=== PATIENT | female | born 1960 | race Caucasian/White ===

== ENCOUNTER 2024-08-16 11:14 | Inpatient (IN) | payer OTHER ==
[~2024-08-16] VITALS: Ht 175.3 cm; Wt 106.7 kg
[2024-08-16 11:22] VITALS: BP_SYST 165; PULSE 162; RESP 24; TEMP 98.2; O2SAT 96
[2024-08-16 12:27] LABS: BASOPHILS # (AUTO) 0.1 K/uL (0.0-0.2); BASOPHILS % (AUTO) 0.6 % (0.0-2.0); EOSINOPHILS % (AUTO) 0.3 % (0.0-4.0); HEMATOCRIT 38.6 % (36-48); HEMOGLOBIN 12.3 g/dL (12.0-16.0); LYMPHOCYTES # (AUTO) 1.3 K/uL (1.0-5.5); LYMPHOCYTES % (AUTO) 11.7 % (20.5-51.5); MEAN CORPUSCULAR HEMOGLOBIN 26 pg (27-31); MEAN CORPUSCULAR HGB CONC 32 % (32-36); MEAN CORPUSCULAR VOLUME 81 fL (79.0-98.0); MONOCYTES # (AUTO) 0.8 K/uL (0.0-1.0); MONOCYTES % (AUTO) 6.9 % (1.7-9.3); NEUTROPHILS # (AUTO) 8.8 K/uL (1.8-7.7); NEUTROPHILS % (AUTO) 80.5 % (40.0-70.0); PLATELET COUNT (AUTO) 268 K/uL (130-430); RED BLOOD CELL COUNT(AUTO) 4.76 MIL/uL (4.2-6.2); RED CELL DISTRIBUTION WIDTH 16.7 % (9.0-15.0)
[2024-08-16] MEDS: dilTIAZem HCL IVP 5 MG/ML VIAL IVP ONE (12:35)
[2024-08-16] MEDS: DILTIAZEM HCL 60 MG TABLET PO ONE (12:36)
[2024-08-16 12:38] LABS: INR 1.1 (0.8-1.2); PROTHROMBIN TIME 11.9 SECS (9.5-12.5)
[2024-08-16 12:51] LABS: ALANINE AMINOTRANSFERASE 39 U/L (12-78); ALBUMIN 3.8 g/dL (3.4-4.8); ANION GAP 12 (5-15); ASPARTATE AMINOTRANSFERASE 24 U/L (10-37); BILIRUBIN,DIRECT 0.3 mg/dL (0.0-0.3); CALCIUM 9.3 mg/dL (8.4-11.0); CARBON DIOXIDE 19 mmol/L (23-29); CHLORIDE 107 mmol/L (98-107); CREATINE KINASE, TOTAL 42 U/L (26-192); CREATININE 1.12 mg/dL (0.55-1.30); GFR AFRICAN AMERICAN 63 mL/min (>90); GLUCOSE 134 mg/dL (74-106); POTASSIUM 3.7 mmol/L (3.5-5.1); SODIUM SERUM 138 mmol/L (136-145); TOTAL BILIRUBIN 0.9 mg/dL (0.0-1.0); TOTAL PROTEIN, SERUM 7.3 g/dL (6.4-8.3); UREA NITROGEN, BLOOD 21 mg/dL (8-21)
[2024-08-16 12:53] LABS: GFR NON AFRICAN-AMERICAN 52 mL/min (>90)
[2024-08-16] MEDS ORDERED: ACETAMINOPHEN 325 MG TABLET PO PRN (14:00)
[2024-08-16] MEDS ORDERED: LORazepam 2 MG/ML VIAL IVP PRN (14:00)
[2024-08-16] MEDS ORDERED: HYDROmorphone 1 MG/ML INJ. CARTRIDGE IVP PRN (14:00)
[2024-08-16] MEDS: APIXABAN 2.5 MG TABLET PO ONE (14:53)
[2024-08-16] MEDS: NACL 0.9% 1,000 ML IV SCH (14:55)
[2024-08-16] MEDS: METOPROLOL TARTRATE 5 MG/5 ML VIAL IVP ONE (15:08)
[2024-08-16 17:34] VITALS: BP_SYST 133; PULSE 74; RESP 18; TEMP 99.2; O2SAT 95
[2024-08-16 20:00] VITALS: BP_SYST 128; PULSE 81; RESP 16; TEMP 97.8; O2SAT 95
[2024-08-16] MEDS: FUROSEMIDE 40 MG/4 ML VIAL IVP SCH (20:10)
[2024-08-16] MEDS: SPIRONOLACTONE 25 MG TABLET (ALDACTONE) PO SCH (20:12)
[2024-08-16] MEDS: APIXABAN 2.5 MG TABLET PO SCH (20:12)
[2024-08-16] MEDS: SACUBITRIL/VALSARTAN 24 MG-26 MG 1 TABLET PO SCH (21:45)
[2024-08-16] MEDS: METOPROLOL TARTRATE 25 MG TABLET PO SCH (21:46)
[2024-08-16] MEDS ORDERED: METOPROLOL TARTRATE 25 MG TABLET PO SCH (22:00)
[2024-08-17] VITALS: BP_SYST 110; PULSE 78; RESP 18; TEMP 97.5; O2SAT 96
[2024-08-17 01:11] LABS: BILIRUBIN,URINE NEGATIVE (NEGATIVE); BLOOD, URINE NEGATIVE (NEGATIVE); CLARITY/URINE CLEAR (CLEAR); COLOR,URINE YELLOW (YELLOW); GLUCOSE,URINE NEGATIVE (NEGATIVE); KETONES,URINE NEGATIVE (NEGATIVE); LEUKOCYTE ESTERASE ,URINE NEGATIVE (NEGATIVE); NITRITE, URINE NEGATIVE (NEGATIVE); PROTEIN URINE NEGATIVE (NEGATIVE); UROBILINOGEN,URINE 0.2 (0.2-1.0)
[2024-08-17 01:25] LABS: BARBITURATE, URINE NEGATIVE (NEG <=200); BENZODIAZEPINE, URINE NEGATIVE (NEG <=150); CANNABINOID, URINE NEGATIVE (NEG <=50); COCAINE, URINE NEGATIVE (NEG <=150); METHAMPHETAMINES SCREEN,URINE NEGATIVE (NEG <=500); OPIATE, URINE NEGATIVE (NEG <=100); PHENCYCLIDINE SCREEN,URINE NEGATIVE (NEG <=25); UR TRICYCLIC ANTIDEPRESSANTS NEGATIVE (NEG <=300); URINE AMPHETAMINE NEGATIVE (NEG <=500); URINE METHADONE NEGATIVE (NEG <=200); URINE OXYCODONE SCREEN NEGATIVE (NEG <=100)
[2024-08-17 08:00] VITALS: BP_SYST 123; PULSE 95; RESP 18; TEMP 97.9; O2SAT 95
[2024-08-17 08:30] VITALS: O2SAT 95
[2024-08-17 08:41] LABS: BASOPHILS # (AUTO) 0.1 K/uL (0.0-0.2); BASOPHILS % (AUTO) 0.9 % (0.0-2.0); EOSINOPHILS # (AUTO) 0.1 K/uL (0.0-0.4); EOSINOPHILS % (AUTO) 1.4 % (0.0-4.0); HEMATOCRIT 37.4 % (36-48); HEMOGLOBIN 11.9 g/dL (12.0-16.0); LYMPHOCYTES # (AUTO) 1.5 K/uL (1.0-5.5); LYMPHOCYTES % (AUTO) 15.8 % (20.5-51.5); MEAN CORPUSCULAR HEMOGLOBIN 26 pg (27-31); MEAN CORPUSCULAR HGB CONC 32 % (32-36); MEAN CORPUSCULAR VOLUME 81 fL (79.0-98.0); MONOCYTES # (AUTO) 0.7 K/uL (0.0-1.0); MONOCYTES % (AUTO) 7.3 % (1.7-9.3); NEUTROPHILS # (AUTO) 7.1 K/uL (1.8-7.7); NEUTROPHILS % (AUTO) 74.6 % (40.0-70.0); PLATELET COUNT (AUTO) 262 K/uL (130-430); RED BLOOD CELL COUNT(AUTO) 4.62 MIL/uL (4.2-6.2); RED CELL DISTRIBUTION WIDTH 16.4 % (9.0-15.0); WHITE BLOOD COUNT (AUTO) 9.4 K/uL (4.8-10.8)
[2024-08-17 09:27] LABS: ALBUMIN 3.7 g/dL (3.4-4.8); CREATININE 1.16 mg/dL (0.55-1.30); PHOSPHORUS 3.2 mg/dL (2.7-4.5); POTASSIUM 3.8 mmol/L (3.5-5.1); TOTAL BILIRUBIN 1.1 mg/dL (0.0-1.0); TOTAL PROTEIN, SERUM 6.8 g/dL (6.4-8.3)
[2024-08-17 11:13] VITALS: BP_SYST 101; PULSE 81; RESP 15; TEMP 97.9; O2SAT 97
[2024-08-17] MEDS: PANTOPRAZOLE SODIUM 40 MG TAB PO ONE (14:23)
[2024-08-17 16:39] VITALS: BP_SYST 104; PULSE 74; RESP 16; TEMP 98.1; O2SAT 98
[2024-08-17 20:00] VITALS: BP_SYST 105; PULSE 78; RESP 16; TEMP 97.7; O2SAT 98
[2024-08-18] VITALS: BP_SYST 101; PULSE 81; RESP 16; TEMP 98.1; O2SAT 98
[2024-08-18 07:01] LABS: BASOPHILS # (AUTO) 0.1 K/uL (0.0-0.2); EOSINOPHILS # (AUTO) 0.2 K/uL (0.0-0.4); EOSINOPHILS % (AUTO) 1.8 % (0.0-4.0); HEMATOCRIT 39.4 % (36-48); HEMOGLOBIN 12.6 g/dL (12.0-16.0); LYMPHOCYTES # (AUTO) 1.8 K/uL (1.0-5.5); LYMPHOCYTES % (AUTO) 19.7 % (20.5-51.5); MEAN CORPUSCULAR HEMOGLOBIN 26 pg (27-31); MEAN CORPUSCULAR HGB CONC 32 % (32-36); MEAN CORPUSCULAR VOLUME 80 fL (79.0-98.0); MONOCYTES % (AUTO) 10.8 % (1.7-9.3); NEUTROPHILS # (AUTO) 6.2 K/uL (1.8-7.7); NEUTROPHILS % (AUTO) 66.7 % (40.0-70.0); PLATELET COUNT (AUTO) 268 K/uL (130-430); RED CELL DISTRIBUTION WIDTH 16.3 % (9.0-15.0); WHITE BLOOD COUNT (AUTO) 9.3 K/uL (4.8-10.8)
[2024-08-18 07:28] LABS: ALBUMIN 3.5 g/dL (3.4-4.8); CALCIUM 8.9 mg/dL (8.4-11.0); CREATININE 1.16 mg/dL (0.55-1.30); POTASSIUM 3.4 mmol/L (3.5-5.1); TOTAL PROTEIN, SERUM 6.8 g/dL (6.4-8.3)
[2024-08-18 08:00] VITALS: BP_SYST 99; PULSE 65; RESP 18; TEMP 97.5; O2SAT 97
[2024-08-18 08:20] VITALS: O2SAT 97
[2024-08-18] MEDS: METOPROLOL SUCCINATE 50 MG TAB.SR.24H (TOPROL XL) PO SCH (09:35)
[2024-08-18] MEDS: POTASSIUM CHLORIDE 10 MEQ TABLET.ER PO ONE (09:35)
[2024-08-18] MEDS: FUROSEMIDE 40 MG TABLET PO SCH (09:35)
[2024-08-18] MEDS: PANTOPRAZOLE SODIUM 40 MG TAB PO SCH (09:35)
[2024-08-18] MEDS ORDERED: APIX5TAB PO (11:22)
[2024-08-18] MEDS ORDERED: METO50TA7 PO (11:22)
[2024-08-18] MEDS ORDERED: FURO-149 PO (11:22)
[2024-08-18] MEDS ORDERED: SACU1TAB PO (11:22)
[2024-08-18] MEDS ORDERED: PANT20TA2 PO (11:22)
[2024-08-18] MEDS ORDERED: SPIR25TA PO (11:22)
[2024-08-18 12:05] VITALS: BP_SYST 109; PULSE 60; RESP 18; TEMP 97.7; O2SAT 95
== END 2024-08-18 12:15 | disposition home or self-care (01) | DRG 291 ==
LOC: SED 11:14 → STU 13:51
PROVIDERS: ADMIT Student in an Organized Health Care Education/Training Program; ATTEND Student in an Organized Health Care Education/Training Program
DX: I11.0 Hypertensive heart disease with heart failure (principal); I50.23 Acute on chronic systolic (congestive) heart failure; R65.10 Systemic inflammatory response syndrome (SIRS) of non-infectious origin without acute organ dysfunction; I48.91 Unspecified atrial fibrillation; I42.0 Dilated cardiomyopathy; E66.9 Obesity, unspecified; I34.0 Nonrheumatic mitral (valve) insufficiency; Z79.899 Other long term (current) drug therapy; Z68.34 Body mass index [BMI] 34.0-34.9, adult
CPT/HCPCS: 36415; 71045; 80048; 80053; 80076; 80307; 81001; 81003; 82550; 83735; 83880; 84100; 84484; 85025; 85610; 85730; 93005; 93306; 99285; G0378; J1940; J3490; J7030